=== PATIENT | female | born 1995 | race Caucasian/White ===

== ENCOUNTER 2016-07-31 05:20 | Emergency (ER) | payer SELFPAY ==
[~2016-07-31] VITALS: Ht 167.6 cm; Wt 83.0 kg
[2016-07-31 05:26] VITALS: BP 130/80
--- NOTE | 2016-07-31 05:35 | NUR ---
Mary Jane vazquez in ED - 07/31/16 at 0537 by [facility] AMBULATED TO ER BED 3
--- NOTE | 2016-07-31 05:37 | NUR ---
AMBULATED TO ER BED 3
--- NOTE | 2016-07-31 05:39 | NUR ---
21 Y/O W/C/O LOWER ABD/ BACK PAIN, AND BURNING PAIN WITH URINATION X 4 DAYS. DENIES ANY FEVER, CHILLS, OR N/V. NO S/S OF DISTRESS NOTED AT THE MOMENT. ER MADE AWARE.
[2016-07-31 06:02] LABS: BILIRUBIN,URINE NEGATIVE (NEGATIVE); COLOR,URINE YELLOW (YELLOW); LEUKOCYTE ESTERASE ,URINE 1+ (NEGATIVE); NITRITE, URINE NEGATIVE (NEGATIVE); PH,URINE 5.5 (5.0-9.0); PROTEIN,URINE TRACE (NEGATIVE); UGLUCOSE NEGATIVE (NEGATIVE); UROBILINOGEN,URINE 0.2 EU/dL (0.2 - 1)
[2016-07-31 06:10] LABS: APPEARANCE,URINE SLIGHTLY HAZY (CLEAR); BLOOD, URINE 1+ (NEGATIVE)
[2016-07-31 06:12] LABS: BACTERIA,URINE OCCASSIONAL /HPF (None Seen); RBC,URINE 3-10 (FEW) /HPF (0-5)
[2016-07-31 06:13] LABS: SQUAMOUS EPITHELIAL CELL,UR 0-3 (FEW) /LPF (0-3 (FEW))
[2016-07-31 06:24] VITALS: BP 125/80
--- NOTE | 2016-07-31 06:24 | NUR ---
Patient discharged BY ER MD with v/s stable. Written and verbal after care instructions given and explained BY DR ROBERTSON. Patient alert, oriented and verbalized understanding of instructions. Ambulatory with steady gait. All questions addressed prior to discharge. ID band removed. Patient advised to follow up with PMD OR RETURN TO ER IF CONDITION WORSENS. Rx of PYRIDIUM, AND MACROBID given. Patient educated on indication of medication including possible reaction and side effects. Opportunity to ask questions provided and answered.
== END 2016-07-31 06:24 | disposition home or self-care (01) ==
LOC: MED 05:20
DX: N39.0 Urinary tract infection, site not specified (principal)
CPT/HCPCS: 81001; 81025; 87086; 87186; 99284

== ENCOUNTER 2018-07-07 13:27 | Emergency (ER) | payer OTHER ==
[~2018-07-07] VITALS: Ht 170.2 cm; Wt 85.7 kg
[2018-07-07 13:58] VITALS: BP 140/83
--- NOTE | 2018-07-07 14:03 | NUR ---
PT AMBULATES TO BED 6
--- NOTE | 2018-07-07 14:10 | NUR ---
PATIENT PRESENTS TO THE ED WITH C/U RUQ 9/10 ABD PAIN. PATIENT STATES SHE HAS BEEN EXPERIENCING PAIN SINCE YESTERDAY. PATIENT REPORTS DIARRHEA X2DAYS. DENIES VOMITING. NO S/S OF DISTRESS NOTED AT THIS TIME. BED LOWERED WITH SIDE RAILS UP. WILL CONTINUE TO MONITOR
[2018-07-07] MEDS ORDERED: NACL 0.9% 1,000 ML IV ONE (15:11)
[2018-07-07] MEDS ORDERED: NACL 0.9% 1,000 ML IV SCH (15:11)
[2018-07-07] MEDS ORDERED: GLYCOPYRROLATE 0.2 MG/ML VIAL IV ONE (15:15)
[2018-07-07] MEDS ORDERED: KETOROLAC 30 MG/ML VIAL IVP ONE (15:15)
[2018-07-07] MEDS ORDERED: ONDANSETRON 4 MG/2 ML VIAL IVP ONE (15:15)
[2018-07-07] MEDS ORDERED: MORPHINE SULFATE 4 MG/ML SYR IVP ONE (15:15)
[2018-07-07 15:28] LABS: BASOPHILS # (AUTO) 0.1 K/uL (0.00-0.22); BASOPHILS % (AUTO) 0.6 % (0.0-2.0); EOSINOPHILS # (AUTO) 0.1 K/uL (0-0.4); EOSINOPHILS % (AUTO) 0.5 % (0.0-4.0); HEMATOCRIT 42.8 % (36-48); HEMOGLOBIN 14.3 g/dL (12.0-16.0); LYMPHOCYTES # (AUTO) 2.3 K/uL (2.5-16.5); LYMPHOCYTES % (AUTO) 19.7 % (20.5-51.1); MEAN CORPUSCULAR HEMOGLOBIN 29 pg (27-31); MEAN CORPUSCULAR HGB CONC 34 g/dL (33-37); MEAN CORPUSCULAR VOLUME 86.4 fL (80-94); MONOCYTES # (AUTO) 0.6 K/uL (0.8-1.0); MONOCYTES % (AUTO) 5.1 % (1.7-9.3); NEUTROPHILS # (AUTO) 8.8 K/uL (1.8-7.7); NEUTROPHILS % (AUTO) 74.1 % (42.2-75.2); PLATELET COUNT (AUTO) 260 K/uL (140-450); RED BLOOD CELL COUNT(AUTO) 4.95 MIL/uL (4.20-5.40); RED CELL DISTRIBUTION WIDTH 12.7 % (11.6-13.7); WHITE BLOOD COUNT (AUTO) 11.8 K/uL (4.8-10.8)
[2018-07-07 16:00] LABS: APPEARANCE,URINE CLEAR (CLEAR); BILIRUBIN,URINE NEGATIVE (NEGATIVE); BLOOD, URINE 2+ (NEGATIVE); COLOR,URINE YELLOW (YELLOW); LEUKOCYTE ESTERASE ,URINE NEGATIVE (NEGATIVE); NITRITE, URINE NEGATIVE (NEGATIVE); UGLUCOSE NEGATIVE (NEGATIVE)
[2018-07-07 16:01] LABS: RBC,URINE 11-20 (MOD) /HPF (0-5); WBC,URINE 0-5 /HPF (0-5)
[2018-07-07 16:08] LABS: CARBON DIOXIDE 26.5 mmol/L (21-32); CREATININE 0.7 mg/dL (0.6-1.3); POTASSIUM 3.5 mmol/L (3.5-5.1)
[2018-07-07 16:14] LABS: ALBUMIN 3.8 g/dL (3.4-5.0); TOTAL BILIRUBIN 0.4 mg/dL (0.0-1.0)
[2018-07-07 18:04] VITALS: BP 124/76
--- NOTE | 2018-07-07 18:05 | NUR ---
Patient discharged with v/s stable. Written and verbal after care instructions given and explained. Patient alert, oriented and verbalized understanding of instructions. Ambulatory with steady gait. All questions addressed prior to discharge. ID band removed. Patient advised to follow up with PMD. Rx of REGLAN, TRAMADOL AND BENTYL given. Patient educated on indication of medication including possible reaction and side effects. Opportunity to ask questions provided and answered.
--- NOTE | 2018-07-16 08:05 | NUR ---
Late entry. Confirmed with RN that the 100ml/hr 0.9NS began at 1600 and ended at 1805.
== END 2018-07-07 18:05 | disposition home or self-care (01) ==
LOC: MED 13:27
DX: K80.70 Calculus of gallbladder and bile duct without cholecystitis without obstruction (principal)
CPT/HCPCS: 36415; 74176; 76705; 80053; 81001; 81025; 82150; 82977; 83690; 84703; 85025; 96374; 96375; 99284; J1885; J2270; J2405; J3490; J7030; Q0092